=== PATIENT | female | born 1995 | race Caucasian/White ===

== ENCOUNTER → 2021-07-16 | Outpatient (CLI) | payer OTHER ==
--- NOTE | 2021-07-16 18:56 | REP ---
INDICATION: PREG 19+ WKS LEVEL II ANATOMY COMPARISON: None. TECHNIQUE: Transabdominal obstetrical ultrasound with color Doppler evaluation. FINDINGS: Examination demonstrates a single live intrauterine in transverse presentation. motion is identified by technologist. Placenta is noted posterior and grade 0 without evidence for placenta previa or abruption. Amniotic fluid volume is normal. Cervix measures 4.1 cm in length and appears closed.. Selected gestational age: 20 weeks 2 days with MARA 12/01/2021. Gestational age by current measurements 21 weeks 2 days with MARA 11/24/2021. FHR equals 144 beats per minute. BPD: 5.2 cm at 21 weeks 5 days HC: 18.7 cm at 21 weeks 0 days AC: 17.3 cm at 22 weeks 0 days FL: 3.3 cm at 20 weeks 2 days HL: 3.3 cm at 21 weeks 0 days HC/AC: 1.08 Estimated weight 421 grams (greater than 97thpercentile based on selected age by LMP). Anatomical assessment demonstrates normal structures including cranium, choroid plexus, cavum, cerebellum/posterior fossa, facial features, lungs, four-chamber heart/ventricular outflow tracts, diaphragm, stomach, cord insertion/three-vessel cord, kidneys/bladder, spine, and extremities. IMPRESSION: Single live intrauterine in transverse lie demonstrating greater than expected interval growth based on selected age. Anatomical assessment is complete and normal. <Electronically signed by Francesco Colunga > 07/16/21 [id number]
== END ==
LOC: M RAD 15:42
PROVIDERS: ATTEND Nurse Practitioner Women's Health
DX: Z34.82 Encounter for supervision of other normal pregnancy, second trimester (principal); Z3A.19 19 weeks gestation of pregnancy

== ENCOUNTER 2021-11-24 05:27 | Inpatient (IN) | payer OTHER ==
[2021-11-24] VITALS (8 sets, daily range): BP systolic 109–124; BP diastolic 57–76
[~2021-11-24] VITALS: Ht 180.3 cm; Wt 81.0 kg
[~2021-11-24 05:27] MED LIST: FERR325T81 PO; MULTTAB20 PO; VITA500C24 PO
[2021-11-24] MEDS ORDERED: LACTATED RINGER'S 1000 ML IV ONE (06:00)
[2021-11-24] MEDS ORDERED: ceFAZolin SOD 2 GM in IV 1 EA IV ONE (06:00)
[2021-11-24] MEDS ORDERED: ACETAMINOPHEN 650 MG SUPP PR ONE (06:00)
[2021-11-24] MEDS ORDERED: LR 1,000 ML IV SCH ×2 (06:00→10:40)
[2021-11-24] MEDS ORDERED: AZITHROMYCIN INJ 500 MG, VIAL MATE ADAPTER 1 EACH in NS 250 ML IV ONE (06:00)
[2021-11-24] MEDS ORDERED: BICITRA 30ML SOLN UDC PO ONE (06:00)
[2021-11-24] MEDS ORDERED: BUPIVACAINE HCL 0.25% 10ML VIAL SC ONE (06:00)
[2021-11-24 06:53] LABS: HEMATOCRIT 33.5 % (36.0-47.0); HEMOGLOBIN 11.6 g/dl (12.0-15.5); MEAN CORPUSCULAR HGB CONC 34.6 g/dl (32.0-36.5); MEAN CORPUSCULAR VOLUME 92.5 fl (80.0-96.0); PLATELET COUNT, AUTOMATED 186 10^3/uL (150-450); RED BLOOD COUNT 3.62 10^6/uL (4.00-5.40); WHITE BLOOD COUNT 7.7 10^3/uL (4.0-10.0)
[2021-11-24] MEDS ORDERED: METHYLERGONOVINE MALEATE 0.2 MG/ML VIAL (J2210) IM PRN ×2 (07:10→10:00)
[2021-11-24] MEDS ORDERED: OXYTOCIN INJ 10 UNITS/ML VIAL (J2590) IV PRN (07:10)
[2021-11-24] MEDS ORDERED: RHOGAM 300 MCG (1500 IU) INJ (J2790) IM SCH ×2 (07:15→10:00)
[2021-11-24] MEDS ORDERED: MEASLES,MUMPS,RUBELLA VACCINE INJ (MMR-II) (90707) SC SCH ×2 (07:15→10:00)
[2021-11-24] MEDS ORDERED: OXYTOCIN DRIP 30 UNITS in IV 1 EA IV SCH ×2 (07:15→10:00)
[2021-11-24] MEDS ORDERED: MORPHINE PRES-FREE INJ 10 MG/10 ML VIAL (J2274) As Ordered ONE (07:36)
[2021-11-24] MEDS ORDERED: ONDANSETRON 4MG/2ML VIAL As Ordered ONE (07:38)
[2021-11-24] MEDS ORDERED: dexameTHASONE 4 MG/ML 1ML VIAL (J1100 PER 1MG) As Ordered ONE (07:38)
[2021-11-24] MEDS ORDERED: KETOROLAC 60MG 2ML VIAL As Ordered ONE (07:38)
[2021-11-24] MEDS ORDERED: OXYTOCIN 30 UNITS IN 0.9% NaCl 500ML IV BAG (J2590) As Ordered ONE ×2 (07:43→09:47)
[2021-11-24] MEDS ORDERED: ACETAMINOPHEN 1000MG 100ML IV BTL (OFIRMEV) (J0131 PER 10MG) As Ordered ONE (07:47)
[2021-11-24] MEDS ORDERED: OXYTOCIN INJ 10 UNITS/ML VIAL (J2590) As Ordered ONE (08:05)
[2021-11-24] MEDS ORDERED: diphenhydrAMINE 50MG/ML VIAL (J1200) IV PRN (08:40)
[2021-11-24] MEDS ORDERED: NALOXONE INJ 0.4MG/1ML VIAL (J2310 PER 1MG) IV PRN ×2 (08:40)
[2021-11-24] MEDS ORDERED: NALBUPHINE HCL 10 MG/ML AMP (J2300) IV PRN ×2 (08:40→10:40)
[2021-11-24] MEDS ORDERED: ONDANSETRON 4MG/2ML VIAL IV PRN ×2 (08:40→10:40)
[2021-11-24] MEDS ORDERED: METOCLOPRAMIDE INJ 10MG/2ML VIAL (J2765 PER 1) IV PRN (08:40)
[2021-11-24] MEDS: PRENATAL VITAMINS CHEWABLE TABLET PO SCH (09:00)
[2021-11-24 09:18] LABS: CORD GAS ABE A -2.2; CORD GAS ABE V -2.5; CORD GAS HCO3 A 24.4 MEQ/L; CORD GAS HCO3 V 22.1 MEQ/L; CORD GAS O2 SAT A 53.3 %; CORD GAS O2 SAT V 87.1 %; CORD GAS PCO2 A 48.9 mmHg; CORD GAS PCO2 V 37.7 mmHg; CORD GAS PH A 7.316 UNITS; CORD GAS PH V 7.385 UNITS; CORD GAS PO2 A 22.3 mmHg; CORD GAS PO2 V 40.2 mmHg; CORD GAS SBC A 21.6 MEQ/L; CORD GAS SBC V 22.1 MEQ/L; CORD GAS TCO2 A 25.9 MEQ/L; CORD GAS TCO2 V 23.2 MEQ/L
[2021-11-24] MEDS ORDERED: PHENYLephrine 500MCG 5ML (100MCG/ML) SYRINGE As Ordered ONE (09:27)
[2021-11-24] MEDS ORDERED: ePHEDrine SULFATE 25 MG/5 ML(5MG/ML) SYRINGE As Ordered ONE (09:27)
[2021-11-24] MEDS ORDERED: ANUSOL HC CREAM 30GM TOP PRN (10:00)
[2021-11-24] MEDS: LR 1,000 ML IV SCH ×2 (10:00→15:47)
[2021-11-24] MEDS ORDERED: SIMETHICONE 80MG CHEW TAB PO PRN (10:00)
[2021-11-24] MEDS ORDERED: OXYTOCIN INJ 10 UNITS/ML VIAL (J2590) IV ONE (10:00)
[2021-11-24] MEDS ORDERED: MOM 30ML SUSPENSION UDC PO PRN (10:00)
[2021-11-24] MEDS ORDERED: OXYTOCIN DRIP 30 UNITS in IV 1 EA IV ONE (10:00)
[2021-11-24] MEDS ORDERED: DOCUSATE SODIUM 100MG CAPSULE PO PRN (10:00)
[2021-11-24] MEDS ORDERED: METHYLERGONOVINE MALEATE 0.2 MG TAB PO PRN (10:00)
[2021-11-24] MEDS ORDERED: ACETAMINOPHEN TAB 650MG DOSE (2X325MG) PO PRN (10:00)
[2021-11-24] MEDS ORDERED: fentaNYL 100 MCG/2 ML INJECTION IV PRN (10:40)
[2021-11-24] MEDS ORDERED: oxyCODONE 5MG TAB PO PRN (10:40)
[2021-11-24] MEDS: KETOROLAC 30 MG/ML 1ML VIAL IV SCH ×2 (15:47→21:43)
[2021-11-25] VITALS (7 sets, daily range): BP systolic 107–138; BP diastolic 53–78
[2021-11-25] MEDS: PERCOCET 5MG/325MG TAB PO PRN ×4 (02:52→21:07)
[2021-11-25] MEDS: KETOROLAC 30 MG/ML 1ML VIAL IV SCH (04:00)
[2021-11-25 07:23] LABS: HEMATOCRIT 28.3 % (36.0-47.0); MEAN CORPUSCULAR HEMOGLOBIN 31.5 pg (27.0-33.0); MEAN CORPUSCULAR HGB CONC 32.9 g/dl (32.0-36.5); MEAN CORPUSCULAR VOLUME 95.9 fl (80.0-96.0); PLATELET COUNT, AUTOMATED 149 10^3/uL (150-450); RED BLOOD COUNT 2.95 10^6/uL (4.00-5.40); WHITE BLOOD COUNT 10.3 10^3/uL (4.0-10.0)
[2021-11-25 07:25] LABS: HEMOGLOBIN 9.3 g/dl (12.0-15.5)
[2021-11-25] MEDS: PRENATAL VITAMINS CHEWABLE TABLET PO SCH (08:52)
[2021-11-25] MEDS ORDERED: PRENATAL VITAMINS CHEWABLE TABLET PO SCH (09:00)
[2021-11-25] MEDS: ACETAMINOPHEN 500 MG TAB PO PRN ×2 (13:37→19:37)
[2021-11-25] MEDS: IBUPROFEN 600MG TAB PO PRN (18:03)
[2021-11-25] MEDS: SIMETHICONE 80MG CHEW TAB PO PRN (19:38)
[2021-11-26] MEDS: IBUPROFEN 600MG TAB PO PRN ×3 (00:08→12:43)
[2021-11-26] MEDS: ACETAMINOPHEN 500 MG TAB PO PRN (01:39)
[2021-11-26] MEDS: SIMETHICONE 80MG CHEW TAB PO PRN ×2 (01:39→08:14)
[2021-11-26 02:00] VITALS: BP 109/65
[2021-11-26] MEDS: PERCOCET 5MG/325MG TAB PO PRN ×2 (03:14→09:21)
[2021-11-26 06:00] VITALS: BP 126/75
[2021-11-26] MEDS ORDERED: PERCOCET PO (06:56)
[2021-11-26] MEDS ORDERED: PRENCHW PO (06:56)
[2021-11-26] MEDS ORDERED: IBUP-1022 PO (06:56)
[2021-11-26] MEDS ORDERED: COLA100C5 PO (06:56)
[2021-11-26] MEDS: PRENATAL VITAMINS CHEWABLE TABLET PO SCH (08:14)
== END 2021-11-26 12:48 | disposition home or self-care (01) | DRG 773 ==
LOC: M LDI 05:27 → M OBS 11:45
PROVIDERS: ADMIT Obstetrics & Gynecology; ATTEND Obstetrics & Gynecology
PROC: 10D00Z1 Extraction of Products of Conception, Low, Open Approach (ICD-10-PCS; principal; 2021-11-24 07:30)
DX: O34.211 Maternal care for low transverse scar from previous cesarean delivery (principal); Z37.0 Single live birth; Z3A.39 39 weeks gestation of pregnancy; O69.2XX0 Labor and delivery complicated by other cord entanglement, with compression, not applicable or unspecified

== ENCOUNTER 2022-05-12 11:30 | Emergency (ER) | payer OTHER ==
[~2022-05-12] VITALS: Ht 180.3 cm; Wt 59.3 kg
[~2022-05-12 11:30] MED LIST changes: +COLA100C5 PO; +IBUP-1022 PO; +PERCOCET PO; +PRENCHW PO
[2022-05-12] MEDS ORDERED: SERT50TA29 PO (11:41)
[2022-05-12] MEDS ORDERED: ALPRAZolam 0.5 MG TAB PO ONE (12:15)
[2022-05-12] MEDS ORDERED: NS 1,000 ML IV ONE (12:20)
[2022-05-12 12:53] LABS: BASO % 0.2 % (0.0-1.0); EOS # 0.1 10^3/uL (0.0-0.5); EOS % 1.2 % (0.0-3.0); HEMOGLOBIN 12.8 g/dl (12.0-15.5); LYMPH % 18.9 % (24.0-44.0); MEAN CORPUSCULAR HEMOGLOBIN 30.9 pg (27.0-33.0); MEAN CORPUSCULAR HGB CONC 33.7 g/dl (32.0-36.5); MEAN CORPUSCULAR VOLUME 91.8 fl (80.0-96.0); MONO # 0.4 10^3/uL (0.0-0.8); MONO % 6.8 % (2.0-8.0); NEUTROPHILS # 3.7 10^3/uL (1.5-8.5); NEUTROPHILS % 72.5 % (36.0-66.0); PLATELET COUNT, AUTOMATED 243 10^3/uL (150-450); RED BLOOD COUNT 4.14 10^6/uL (4.00-5.40); WHITE BLOOD COUNT 5.1 10^3/uL (4.0-10.0)
[2022-05-12 13:03] LABS: HCG, SERUM QUALITATIVE NEGATIVE (NEGATIVE)
[2022-05-12 13:09] LABS: AMPHETAMINES LEVEL URINE NEGATIVE (NEGATIVE); BARBITURATES URINE NEGATIVE (NEGATIVE); BENZODIAZEPINES URINE NEGATIVE (NEGATIVE); CANNABINOIDS URINE NEGATIVE (NEGATIVE); COCAINE METABOLITE URINE NEGATIVE (NEGATIVE); METHADONE URINE NEGATIVE (NEGATIVE); OPIATES URINE NEGATIVE (NEGATIVE); PHENCYCLIDINE URINE NEGATIVE (NEGATIVE)
[2022-05-12 14:09] LABS: ACETAMINOPHEN LEVEL < 2.0 UG/ML (10.0-30.0); BLOOD UREA NITROGEN 11 MG/DL (7-18); CALCIUM LEVEL 10.1 MG/DL (8.5-10.1); CARBON DIOXIDE LEVEL 28 MEQ/L (21-32); CHLORIDE LEVEL 108 MEQ/L (98-107); CREATININE FOR GFR 0.69 MG/DL (0.55-1.30); ETHYL ALCOHOL (ETHANOL) < 0.003 % (0.000-0.010); GLOMERULAR FILTRATION RATE > 60.0 (>60); GLUCOSE, FASTING 106 MG/DL (70-100); POTASSIUM SERUM 3.9 MEQ/L (3.5-5.1); SALICYLATE LEVEL < 1.7 MG/DL (5.0-30.0); SODIUM LEVEL 140 MEQ/L (136-145); THYROID STIMULATING HORMONE 0.811 uIU/ML (0.358-3.740)
[2022-05-12] MEDS ORDERED: HYDR-3363 PO ×2 (16:28→16:45)
[2022-05-12 16:41] VITALS: BP 112/67
[2022-05-13] MEDS ORDERED: HYDR-3363 PO (20:41)
== END 2022-05-12 16:50 | disposition home or self-care (01) ==
LOC: M ED 11:30
DX: F32.A Depression, unspecified (principal); F41.9 Anxiety disorder, unspecified; Z79.899 Other long term (current) drug therapy

== ENCOUNTER 2022-05-13 14:37 | Inpatient (IN) | payer OTHER ==
[~2022-05-13] VITALS: Ht 180.3 cm; Wt 65.2 kg
[~2022-05-13 14:37] MED LIST changes: +HYDR-3363 PO; +SERT50TA29 PO
[2022-05-13 16:03] LABS: HEMATOCRIT 38.5 % (36.0-47.0); HEMOGLOBIN 12.7 g/dl (12.0-15.5); MEAN CORPUSCULAR HEMOGLOBIN 31.6 pg (27.0-33.0); MEAN CORPUSCULAR VOLUME 95.8 fl (80.0-96.0); PLATELET COUNT, AUTOMATED 228 10^3/uL (150-450); RED BLOOD COUNT 4.02 10^6/uL (4.00-5.40); WHITE BLOOD COUNT 5.3 10^3/uL (4.0-10.0)
[2022-05-13 16:30] LABS: AMPHETAMINES LEVEL URINE NEGATIVE (NEGATIVE); BARBITURATES URINE NEGATIVE (NEGATIVE); BENZODIAZEPINES URINE NEGATIVE (NEGATIVE); CANNABINOIDS URINE NEGATIVE (NEGATIVE); COCAINE METABOLITE URINE NEGATIVE (NEGATIVE); METHADONE URINE NEGATIVE (NEGATIVE); OPIATES URINE NEGATIVE (NEGATIVE); PHENCYCLIDINE URINE NEGATIVE (NEGATIVE)
[2022-05-13 16:37] LABS: RSV AMPLIFICATION NEGATIVE (NEGATIVE)
[2022-05-13 16:42] LABS: ALBUMIN 4.2 GM/DL (3.2-5.2); ALT/SGPT 25 U/L (12-78); BILIRUBIN,DIRECT 0.3 MG/DL (0.0-0.2); BILIRUBIN,TOTAL 0.6 MG/DL (0.2-1.0); BLOOD UREA NITROGEN 11 MG/DL (7-18); CALCIUM LEVEL 9.4 MG/DL (8.5-10.1); CARBON DIOXIDE LEVEL 28 MEQ/L (21-32); CHLORIDE LEVEL 107 MEQ/L (98-107); GLOMERULAR FILTRATION RATE > 60.0 (>60); GLUCOSE, FASTING 93 MG/DL (70-100); POTASSIUM SERUM 3.7 MEQ/L (3.5-5.1); SALICYLATE LEVEL < 1.7 MG/DL (5.0-30.0); SODIUM LEVEL 141 MEQ/L (136-145); THYROID STIMULATING HORMONE 0.899 uIU/ML (0.358-3.740); TOTAL PROTEIN 7.4 GM/DL (6.4-8.2)
[2022-05-13 16:43] LABS: ACETAMINOPHEN LEVEL < 2.0 UG/ML (10.0-30.0); ETHYL ALCOHOL (ETHANOL) < 0.003 % (0.000-0.010)
[2022-05-13 16:53] LABS: HCG, SERUM QUALITATIVE NEGATIVE (NEGATIVE)
[2022-05-13] MEDS ORDERED: HYDR-3363 PO (20:41)
[2022-05-13] MEDS ORDERED: HOME MED LIST COMPLETE! XX SCH (20:45)
[2022-05-14] MEDS ORDERED: NORE0.353 (08:00)
[2022-05-14] MEDS ORDERED: PREN27TA3 (08:00)
[2022-05-14] MEDS: SERTRALINE HCL 25 MG TABLET PO SCH (08:13)
[2022-05-15] MEDS ORDERED: ACETAMINOPHEN TAB 650MG DOSE (2X325MG) PO ONE (05:10)
[2022-05-15] MEDS ORDERED: IBUPROFEN 600MG TAB PO ONE (08:25)
[2022-05-15] MEDS: SERTRALINE HCL 25 MG TABLET PO SCH (08:57)
[2022-05-16] MEDS: SERTRALINE HCL 25 MG TABLET PO SCH (09:11)
[2022-05-17] MEDS: SERTRALINE HCL 25 MG TABLET PO SCH (10:02)
[2022-05-18] MEDS: SERTRALINE HCL 25 MG TABLET PO SCH (08:15)
[2022-05-18] MEDS ORDERED: MOM 30ML SUSPENSION UDC PO PRN (13:55)
[2022-05-18] MEDS ORDERED: ACETAMINOPHEN TAB 650MG DOSE (2X325MG) PO PRN (13:55)
[2022-05-18] MEDS ORDERED: traZODone 50 MG TAB PO PRN (13:55)
[2022-05-19 06:35] VITALS: BP 109/57
[2022-05-19] MEDS: buPROPion (WELLBUTRIN SR) 100 MG SR TAB PO SCH (11:22)
[2022-05-19 19:08] VITALS: BP 121/68
[2022-05-20 06:51] VITALS: BP 106/57
[2022-05-20] MEDS: buPROPion (WELLBUTRIN SR) 100 MG SR TAB PO SCH (08:16)
[2022-05-20 18:03] VITALS: BP 127/81
[2022-05-21 06:51] VITALS: BP 113/50
[2022-05-21] MEDS ORDERED: buPROPion **SR TABLET** (ZYBAN) 150MG PO SCH (09:00)
[2022-05-21 18:06] VITALS: BP 109/62
[2022-05-22 06:37] VITALS: BP 110/57
[2022-05-22] MEDS: buPROPion (WELLBUTRIN SR) 100 MG SR TAB PO SCH (08:56)
[2022-05-22 18:03] VITALS: BP 123/75
[2022-05-23 06:33] VITALS: BP 112/56
[2022-05-23] MEDS: buPROPion (WELLBUTRIN SR) 100 MG SR TAB PO SCH (08:10)
[2022-05-23] MEDS ORDERED: HYDR50TA70 PO (10:18)
[2022-05-23] MEDS ORDERED: BUPR10TASR PO (10:18)
== END 2022-05-23 12:02 | disposition home or self-care (01) | DRG 881 ==
LOC: M ED 14:37 → M ED INP 05-18 13:53 → M PSY 05-18 14:26
PROVIDERS: ADMIT Psychiatry & Neurology Psychiatry; ATTEND Psychiatry & Neurology Psychiatry
DX: F32.A Depression, unspecified (principal); R45.851 Suicidal ideations; F40.01 Agoraphobia with panic disorder

== ENCOUNTER → 2023-05-19 | Outpatient (REF) | payer OTHER ==
[~2023-05-19] MED LIST changes: +BUPR10TASR PO; +HYDR50TA70 PO; +NORE0.353; +PREN27TA3
[2023-05-20 12:43] LABS: GC DNA AMPLIFICATION NEGATIVE (NEGATIVE)
== END ==
LOC: M LAB REF 16:05
PROVIDERS: ATTEND Physician Assistant
DX: R30.0 Dysuria (principal)

== ENCOUNTER 2024-03-13 21:35 | Inpatient (IN) | payer OTHER ==
[~2024-03-13] VITALS: Ht 180.3 cm; Wt 66.7 kg
[2024-03-13 22:39] LABS: HEMATOCRIT 40.2 % (36.0-47.0); HEMOGLOBIN 13.9 g/dl (12.0-15.5); MEAN CORPUSCULAR HEMOGLOBIN 32.5 pg (27.0-33.0); MEAN CORPUSCULAR HGB CONC 34.6 g/dl (32.0-36.5); MEAN CORPUSCULAR VOLUME 93.9 fl (80.0-96.0); PLATELET COUNT, AUTOMATED 280 10^3/uL (150-450); RED BLOOD COUNT 4.28 10^6/uL (4.00-5.40); WHITE BLOOD COUNT 6.3 10^3/uL (4.0-10.0)
[2024-03-13 23:00] LABS: AMPHETAMINES LEVEL URINE NEGATIVE (NEGATIVE); BARBITURATES URINE NEGATIVE (NEGATIVE); BENZODIAZEPINES URINE NEGATIVE (NEGATIVE); CANNABINOIDS URINE NEGATIVE (NEGATIVE); COCAINE METABOLITE URINE NEGATIVE (NEGATIVE); METHADONE URINE NEGATIVE (NEGATIVE); OPIATES URINE NEGATIVE (NEGATIVE); PHENCYCLIDINE URINE NEGATIVE (NEGATIVE)
[2024-03-13 23:04] LABS: ALBUMIN 4.6 G/DL (3.2-5.2); ALKALINE PHOSPHATASE 64 U/L (46-116); ALT/SGPT 19 U/L (7.0-40); AST/SGOT 15 U/L (<34); BILIRUBIN,DIRECT 0.2 MG/DL (<0.4); BILIRUBIN,TOTAL 0.5 MG/DL (0.3-1.2); BLOOD UREA NITROGEN 9 MG/DL (9-23); CARBON DIOXIDE LEVEL 28 MMOL/L (20-31); CHLORIDE LEVEL 109 MMOL/L (98-107); GLOMERULAR FILTRATION RATE > 60.0 (>60); GLUCOSE, FASTING 90 MG/DL (60-100); POTASSIUM SERUM 3.8 MMOL/L (3.5-5.1); SALICYLATE LEVEL < 3.0 MG/DL (<30); SODIUM LEVEL 146 MMOL/L (136-145); TOTAL PROTEIN 8.1 G/DL (5.7-8.2)
[2024-03-13 23:06] LABS: THYROID STIMULATING HORMONE 0.548 uIU/ML (0.55-4.78)
[2024-03-13 23:29] LABS: ETHYL ALCOHOL (ETHANOL) 0.342 % (0.000-0.010)
[2024-03-13] MEDS ORDERED: LEXA1TAB PO (23:44)
[2024-03-13] MEDS ORDERED: HYDR50TA70 PO (23:44)
[2024-03-13] MEDS ORDERED: LEXA1TAB2 PO (23:50)
[2024-03-13] MEDS ORDERED: HYDR50CA2 PO (23:56)
[2024-03-14] MEDS ORDERED: GABA-1171 PO (11:26)
[2024-03-14] MEDS ORDERED: HOME MED LIST COMPLETE! XX SCH ×2 (11:30)
[2024-03-14] MEDS: LORazepam 2 MG TAB PO PRN (19:13)
[2024-03-14] MEDS: THIAMINE 100 MG TAB PO SCH (21:22)
[2024-03-15] MEDS ORDERED: IBUPROFEN 400MG TAB PO PRN (07:50)
[2024-03-15] MEDS ORDERED: MOM 30ML SUSPENSION UDC PO PRN (07:50)
[2024-03-15] MEDS ORDERED: traZODone 50 MG TAB PO PRN (07:50)
[2024-03-15] MEDS ORDERED: LORazepam 2 MG TAB PO PRN (07:50)
[2024-03-15] MEDS ORDERED: ACETAMINOPHEN TAB 650MG DOSE (2X325MG) PO PRN (07:50)
[2024-03-15] MEDS ORDERED: diphenhydrAMINE 25MG CAP PO PRN (07:50)
[2024-03-15] MEDS ORDERED: MAALOX 30 ML SUSP *UDC PO PRN (07:50)
[2024-03-15 08:40] VITALS: BP 127/77; TEMP 97.8; O2SAT 100
[2024-03-15] MEDS ORDERED: FOLIC ACID 1MG TAB PO SCH (09:00)
[2024-03-15] MEDS ORDERED: MULTIVITAMINS/MINERALS THERAP 1 TAB PO SCH (09:00)
[2024-03-15] MEDS: FOLIC ACID 1MG TAB PO SCH (09:32)
[2024-03-15] MEDS: MULTIVITAMINS/MINERALS THERAP 1 TAB PO SCH (09:33)
[2024-03-15] MEDS: THIAMINE 100 MG TAB PO SCH (09:33)
[2024-03-15] MEDS: ESCITALOPRAM OXALATE 10 MG TAB (LEXAPRO) PO SCH (12:43)
[2024-03-15] MEDS: NALTREXONE 50 MG TAB PO SCH (12:55)
[2024-03-15 14:00] VITALS: BP 116/70
[2024-03-15] MEDS: GABAPENTIN 100 MG CAP PO SCH (15:38)
[2024-03-15 15:45] VITALS: BP 116/70; TEMP 98.6; O2SAT 100
[2024-03-15] MEDS: ARIPiprazole 2 MG TAB PO SCH (20:05)
[2024-03-15] MEDS: hydrOXYzine 50 MG TAB PO PRN (21:36)
[2024-03-16 06:00] VITALS: BP 131/70
[2024-03-16 10:46] LABS: CHOLESTEROL LEVEL 169 MG/DL (<200); CHOLESTEROL RISK RATIO 1.71 (<5); HDL CHOLESTEROL 98.6 MG/DL (>40); LDL CHOLESTEROL 50.6 MG/DL (<100); NON-HDL-C 70.4 MG/DL; TRIGLYCERIDES LEVEL 99 MG/DL (<150)
[2024-03-16 10:50] LABS: HCG, SERUM QUALITATIVE NEGATIVE (NEGATIVE)
[2024-03-16 15:49] VITALS: BP 132/75
[2024-03-16 18:00] VITALS: BP 132/83; TEMP 97.6; O2SAT 100
[2024-03-17 06:28] VITALS: BP 112/64; TEMP 98.1; O2SAT 16
[2024-03-17 18:40] VITALS: BP 138/84; TEMP 97.2; O2SAT 100
[2024-03-18 05:54] VITALS: BP 120/61; TEMP 97.4; O2SAT 100
[2024-03-18] MEDS ORDERED: ABIL1TAB13 PO (09:04)
[2024-03-18] MEDS ORDERED: NALT50TA4 PO (09:04)
== END 2024-03-18 13:00 | disposition home or self-care (01) | DRG 881 ==
LOC: M ED 21:35 → M ED INP 03-15 07:49 → M PSY 03-15 08:55
PROVIDERS: ADMIT Student in an Organized Health Care Education/Training Program; ATTEND Student in an Organized Health Care Education/Training Program
DX: F32.A Depression, unspecified (principal); R45.851 Suicidal ideations; E87.0 Hyperosmolality and hypernatremia; F41.9 Anxiety disorder, unspecified; F10.10 Alcohol abuse, uncomplicated; F17.200 Nicotine dependence, unspecified, uncomplicated; Z79.899 Other long term (current) drug therapy